=== PATIENT | male | born 1955 ===

== ENCOUNTER 2016-11-16 14:35 | Outpatient (CLI) | payer OTHER ==
--- NOTE | 2016-11-18 16:45 | Electroencephalogram ---
DATE OF PROCEDURE: 11/16/2016 ELECTROENCEPHALOGRAPHY REPORT HISTORY: The patient is a 61-year-old man with a history of transient loss of consciousness. EEG was requested to assess ongoing seizure activities. TECHNIQUE: During the recording, the patient was awake, well cooperative, normal mentality. EEG was done using 18 electrodes placed scalp to scalp, scalp to ear montages according to 10/20 [employer] System. On most wakeful portions of recording, background consists of well regulated 10-11 cycles per second alpha activities with good response to physiological stimulation. Photic stimulation from 3 to 32 hertz was done, result no significant changes. Hyperventilation with good efforts resulted in a mild diffuse slowing theta range. As recording progressed, there was further intermittent episodes of attenuation corresponding to sleep stages. No asymmetry from [id number]. No spike or wave activities noted. IMPRESSION: Normal awake stage 1 sleep electroencephalogram with photic stimulation and hyperventilation. COMMENT: Absence of paroxysmal event on a single recording does not rule out seizure disorder. Yossi Johnson M.D. DR: BOBBY JOB#: [id number] CC:
== END 2016-11-16 16:35 | disposition home or self-care (01) ==
LOC: EDBD → CAR 14:35
DX: R55 Syncope and collapse (principal); G40.909 Epilepsy, unspecified, not intractable, without status epilepticus
CPT/HCPCS: 95819